=== PATIENT | female | born 1975 | race Caucasian/White ===

== ENCOUNTER 2019-11-22 13:20 | Day surgery (SDC) | payer SELFPAY ==
[2019-11-22] MEDS ORDERED: hydrALAZINE 20 MG/ML VIAL SLOW IVP PRN (13:26)
[2019-11-22 14:25] VITALS: BP 118/74; TEMP 98.3; BMI 30.7
--- NOTE | 2019-11-22 15:53 | PDOC.LDHP ---
Labor and Delivery H&P Chief complaint: contractions HPI: 44 y/o at 37w4d, patient of Dr. Bernal, presents with ctx every 7 mins for the last few hours. Is scheduled for primary LTCS for breech later this month. Denies VB, LOF, or decreased FM. ROS neg for HEENT, CV, pulm, GI, , neuro, psych, skin, musculoskeletal, or constitutional symptoms other than mentioned above. OB History Details: 1 prior term Past Medical History: None Current medications: pre-blair vitamins Previous surgical history: appendectomy, other (brain, ortho surgeries) Allergies/Adverse Reactions: Allergies Allergy/AdvReac Type Severity Reaction Status Date / Time latex Allergy Rash Verified 11/22/19 14:16 Social history: none - Physical Exam Vital signs reviewed and normal: yes General: NAD, resting Lungs: nonlabored breathing Abdomen: gravid Extremeties: no edema FHT: category 1 (150s, mod variability, + accels, no decels) [place] contractions every: intermittent - Vaginal Exam cm dilated: 2 (Unchanged after 1 hour) Effacement: 50% Station: -3 - Assessment 44 y/o at 37w4d with no e/o active labor. status reassuring with reactive NST. - Plan -: D/c home with precautions. Advised to keep all appointments.
== END 2019-11-22 15:40 | disposition home or self-care (01) ==
LOC: L&D/OP 13:20
PROVIDERS: ATTEND Obstetrics & Gynecology
DX: O47.1 False labor at or after 37 completed weeks of gestation (principal); Z3A.37 37 weeks gestation of pregnancy; Z91.040 Latex allergy status
CPT/HCPCS: 99283

== ENCOUNTER 2019-11-26 11:34 | Inpatient (IN) | payer OTHER, SELFPAY ==
[2019-11-26] MEDS ORDERED: hydrALAZINE 20 MG/ML VIAL SLOW IVP PRN ×2 (11:54→15:20)
[2019-11-26] MEDS ORDERED: Promethazine HCl 25 MG/ML VIAL IM PRN ×2 (11:54→13:03)
[2019-11-26] MEDS ORDERED: Ondansetron PF 4 MG/2 ML Vial IVP PRN ×3 (11:54→15:20)
[2019-11-26] MEDS ORDERED: Bicitra 30 ML UDCUP PO SCH (12:00)
[2019-11-26] MEDS ORDERED: CEFAZOLIN 2 GM in Premix Bag 1 BAG IVPB SCH (12:00)
[2019-11-26] MEDS ORDERED: Lactated Ringer's 1,000 ML IV SCH (12:00)
[2019-11-26] MEDS ORDERED: Oxytocin 10 UNITS/ML VIAL ONE (12:08)
[2019-11-26] MEDS ORDERED: Ketorolac Tromethamine 30 MG/ML VIAL ONE (12:08)
[2019-11-26] MEDS ORDERED: PHENYLEPHRINE-NS 100 MCG/ML 10 ML SYRINGE ONE (12:08)
[2019-11-26] MEDS ORDERED: EPHEDRINE 25 MG/5 ML SYRINGE ONE (12:08)
[2019-11-26] MEDS ORDERED: Glycopyrrolate 0.2 MG/ML 5 ML SYRINGE ONE (12:08)
[2019-11-26] MEDS ORDERED: Ondansetron PF 4 MG/2 ML Vial ONE (12:08)
[2019-11-26 12:10] VITALS: BMI 31.8
[2019-11-26] MEDS ORDERED: MORPHINE 5 MG/10 ML PF VIAL ONE (12:10)
[2019-11-26 12:22] LABS: Hemoglobin 13.9 g/dL (12.0-16.0); Mean Corpuscular HGB CONC 35.3 g/dL (32.0-36.0); Mean Corpuscular Hemoglobin 34.2 pg (27.0-31.0); Mean Corpuscular Volume 96.8 fL (78.0-98.0); Mean Platelet Volume 7.7 fL (7.4-10.4); Platelet Count 226 thou/uL (130-400); RBC Distribution Width 11.9 % (11.5-14.5); Red Blood Cell (RBC) Count 4.07 mill/uL (4.20-5.40)
[2019-11-26] MEDS ORDERED: Famotidine/PF 20 mg/2ml Vial ONE (12:23)
[2019-11-26] MEDS ORDERED: Scopolamine 1.5 mg/72 hour Patch ONE (12:24)
--- NOTE | 2019-11-26 12:48 | PDOC.LDHP ---
Labor and Delivery H&P Chief complaint: other (BPP 6/8) HPI: 44yo at 38w5d by LMP here for PCS for breech presentation and BPP 6/8, -2 for breathing today in office. +FM Current gestational age (weeks): 38 Due date: 12/09/19 Dating criteria: last menstrual period Grav: 2 Para: 1 Current complications: none Abnormal US findings: Yes (BPP 6/8, breech) Past Medical History: denies Current medications: pre-blair vitamins Previous surgical history: other (wrist surgery, neurosurgery- fluid drained, appy) Allergies/Adverse Reactions: Allergies Allergy/AdvReac Type Severity Reaction Status Date / Time latex Allergy Rash Verified 11/22/19 14:16 Social history: none - Physical Exam Vital signs reviewed and normal: yes General: NAD Heart: RRR Lungs: CTAB Abdomen: gravid Extremeties: no edema FHT: category 1 [place] contractions every: 5min - OB Labs Blood type: O RH: negative Antibody Screen: positive HIV: negative RPR: negative HEPSAg: negative 1 hour GCT: negative GBS: negative Urine drug screen: negative Rubella: immune - Assessment L&D Assessment: scheduled primary section - Plan Plan: admit to L&D, to OR for section, informed consent obtained, anesthesia consult for pain management
--- NOTE | 2019-11-26 12:52 | PDOC.OPDEL ---
OB Operative/Delivery Note Delivery Dr/Surgeon: Archie Assist: Light Pre-Delivery Diagnosis: breech Procedure/Post Delivery Dx: primary low transverse CS Weeks gestation: 38 Anesthesia: spinal - Additional Findings/Plan Placenta delivered: spontaneous findings: low transverse hysterotomy without extension, normal uterus, normal tubes, normal ovaries Post delivery plan: routine recovery
[2019-11-26 13:02] LABS: HBSAg Index 0.19 S/CO (0-0.99); Hep B Surf Ag Non-Reactive S/CO (NonReactive); Syphilis Antibody Nonreactive (Nonreactive); Syphilis Antibody Index 0.03 S/CO (<1.00 Non-Reactive)
[2019-11-26] MEDS ORDERED: L&D-Morphine 4 MG/ML VIAL SLOW IVP PRN (13:03)
[2019-11-26] MEDS ORDERED: Promethazine HCl 25 MG SUPP PR PRN (13:03)
[2019-11-26] MEDS ORDERED: Meperidine HCl/PF 25 MG/ML VIAL SLOW IVP PRN (13:03)
[2019-11-26] MEDS ORDERED: HYDROmorphone 2 MG/ML VIAL SLOW IVP PRN (13:03)
[2019-11-26] MEDS ORDERED: Ketorolac Tromethamine 30 MG/ML VIAL IVP PRN (13:03)
[2019-11-26] MEDS ORDERED: Naloxone HCl 0.4 mg/ml Vial IVP PRN ×2 (13:03)
[2019-11-26] MEDS ORDERED: Naloxone HCl 0.4 mg/ml Vial IV PRN (13:03)
[2019-11-26] MEDS ORDERED: diphenhydrAMINE 50 MG/ML VIAL IVP PRN (13:03)
[2019-11-26] MEDS ORDERED: Ondansetron HCl/PF 4 MG/2 ML Vial IVP PRN (13:03)
[2019-11-26] MEDS ORDERED: Ketorolac Tromethamine 30 MG/ML VIAL IVP SCH (13:15)
[2019-11-26] MEDS ORDERED: Communication Order-Pharmacy FS SCH (13:15)
[2019-11-26] MEDS ORDERED: Fentanyl 100 MCG/2 ML VIAL ONE (13:16)
[2019-11-26] MEDS ORDERED: Midazolam HCl 2 mg/2 ml Vial ONE (13:17)
[2019-11-26 13:30] LABS: Actual Bicarbonate (HCO3a) 21.8 mEq/L (22-28); Actual Bicarbonate (HCO3v) 21 mEq/L (22-28); Base Excess -4.3 mEq/L (-2.0 to +3.0); Base Excess (BEa) -3.6 mEq/L (-2.0 to +3.0); pH (Cord, venous) 7.36 (7.32-7.43)
[2019-11-26] MEDS ORDERED: NS / Oxytocin 40 units/1000ml 1,000 ML ONE (15:12)
[2019-11-26] MEDS ORDERED: Acetaminophen 325 MG TAB PO PRN (15:20)
[2019-11-26] MEDS ORDERED: Lanolin Ointment 7 GM TUBE TOP PRN (15:20)
[2019-11-26] MEDS ORDERED: Simethicone Chewable 80 MG TAB PO PRN (15:20)
[2019-11-26] MEDS ORDERED: Bisacodyl 10 MG SUPP PR PRN (15:20)
[2019-11-26] MEDS: Ferrous Sulfate 325 MG TAB PO SCH (19:34)
[2019-11-26] MEDS: Docusate Calcium (SURFAK) 240 MG CAP PO SCH (21:45)
[2019-11-26] MEDS: diphenhydrAMINE 25 MG CAP PO PRN (22:28)
[2019-11-27] MEDS ORDERED: HYDROcodone/Acetaminophen 5/325 mg Tablet PO PRN (02:01)
[2019-11-27] MEDS ORDERED: Sodium Chloride 0.9% 10 ML ONE ×2 (04:55→05:06)
[2019-11-27] MEDS: diphenhydrAMINE 25 MG CAP PO PRN ×2 (04:56→09:13)
--- NOTE | 2019-11-27 05:49 | PDOC.PP ---
Post Progress Note Post Day #: POD1 Subjective: Feels well, pain under control PO intake tolerated: yes Flatus: yes Ambulation: yes Vital Signs (12 hours) Temp Pulse Resp BP Pulse Ox 11/27/19 00:40 98.4 F 106 H 18 128/70 11/26/19 19:49 98.1 F 82 18 117/70 98 Weight Weight 163 lb Past vitals reviewed and wml - Physical Examination General: NAD Respiratory: non-labored breathing Abdominal: lochia, no distention, appropriately TTP Extremities: negative homans (B) Skin: CS incision dry & intact (sutured and DB in use), no rash Neurological: no gross focal deficits Psychiatric: A&Ox3, normal affect Result Diagrams: 11/26/19 12:08 Additional Labs: Post Labs Blood Type O NEGATIVE 11/26/19 14:04 Hep Bs Antigen Non-Reactive S/CO (NonReactive) 11/26/19 12:08 (1) Delivery by section Code(s): [id number] - Status: Acute - Assessment/Plan POD1 Doing well. Encouraged ambulation. Routine postop care.
[2019-11-27] MEDS: Ferrous Sulfate 325 MG TAB PO SCH ×2 (07:51→21:02)
[2019-11-27 08:11] LABS: Hemoglobin 11.3 g/dL (12.0-16.0); Mean Corpuscular HGB CONC 35.3 g/dL (32.0-36.0); Mean Corpuscular Hemoglobin 34.2 pg (27.0-31.0); Mean Corpuscular Volume 96.9 fL (78.0-98.0); Mean Platelet Volume 7.7 fL (7.4-10.4); Platelet Count 205 thou/uL (130-400); RBC Distribution Width 11.9 % (11.5-14.5); White Blood Cell (WBC) Count 15.3 thou/uL (4.8-10.8)
[2019-11-27] MEDS ORDERED: Adacel (T-DAP) 0.5 ML SYRINGE IM ONE (09:00)
[2019-11-27] MEDS: Prenatal Vitamin 1 TAB PO SCH (09:09)
[2019-11-27] MEDS: Docusate Calcium (SURFAK) 240 MG CAP PO SCH ×2 (09:10→21:18)
[2019-11-27] MEDS: Ibuprofen 800 MG TAB PO SCH ×2 (13:31→21:18)
[2019-11-27] MEDS: HYDROcodone/Acetaminophen 5/325 mg Tablet PO PRN ×2 (15:20→21:17)
--- NOTE | 2019-11-27 20:19 | OP ---
DATE OF PROCEDURE: 11/26/2019 PREOPERATIVE DIAGNOSES: 1. Intrauterine at 38 weeks 5 days. 2. Breech presentation. POSTOPERATIVE DIAGNOSES: 1. Intrauterine at 38 weeks 5 days. 2. Breech presentation. PROCEDURE PERFORMED: Primary low transverse section via Pfannenstiel skin incision. ANESTHESIA: Spinal. PEDIATRICS HOSPITALIST SURGEON: Marilu Muñoz CNM. ESTIMATED BLOOD LOSS: 600 mL. COMPLICATIONS: None. DRAINS: Lucas catheter. PATHOLOGY: None. FINDINGS: Male , footling breech presentation, clear amniotic fluid. Apgars and weight are currently pending. Hysterotomy without extension. Normal uterus, ovaries, and tubes bilaterally. Cord gas was ABG 7.346. DESCRIPTION OF PROCEDURE: Patient was taken to the operating room, where spinal anesthesia was obtained without difficulty. Patient was prepped and draped in a sterile fashion in a dorsal supine position with a leftward tilt. After ensuring adequacy of anesthesia, Pfannenstiel skin incision were made and carried down to the underlying subcutaneous tissue with the knife. The fascia was nicked in the midline with a knife and carried laterally with the Andrew scissors. The superior aspect of the fascia was tented with 2 Chato's and dissected off the rectus bluntly. The inferior aspect of the fascia was tented with 2 Chato's and dissected off the rectus with the Andrew scissors. The rectus was bluntly divided in the midline. The peritoneum was bluntly entered into and manually retracted. The Jose Maria O retractor was placed. The lower uterine segment was incised in a transverse fashion and extended with a Montgomery maneuver. The breech was brought to the hysterotomy. The feet delivered initially followed by the sacrum. The sacrum was turned sacrum anterior and the baby was delivered up to the level of the scapula. The baby was grasped with a moist towel and the arms were delivered with a sweeping motion over the anterior chest. The head was then flexed with the [id number]-[id number] maneuver and the head was delivered up until the parietal bones. At this time with the head being slightly larger, there was slight difficulty met in delivering the very superior most aspect of the calvarium, but the baby was delivered with pressure on the lower abdomen around where the head was and the 's cord was clamped and the infant was handed to awaiting Lauri team. Cord gas and cord blood were obtained. The placenta was allowed to spontaneously deliver. The uterus was exteriorized, cleared of all clots and debris and placed back into the abdomen. The hysterotomy was repaired with a #1 Monocryl in a running locking fashion. Hemostasis was noted to be excellent. The pelvis was irrigated and suctioned and hemostasis was again noted. Jose Maria O retractor was removed. The rectus muscles were examined and noted to be hemostatic. The fascia was reapproximated with 0 PDS x1 suture with excellent reapproximation. The subcutaneous tissue was irrigated and cauterized of any bleeders and reapproximated with a 2-0 plain gut in a running fashion. The skin was closed with 4-0 Monocryl in a subcuticular fashion. Dermabond was applied as well as a pressure dressing. Patient tolerated the procedure well. Sponge, lap, and needle counts correct x2. Patient was taken to recovery room in stable condition. Patient received Ancef 2 g prior to the procedure. Job ID: [id number]
[2019-11-28] MEDS: HYDROcodone/Acetaminophen 5/325 mg Tablet PO PRN (01:34)
[2019-11-28] MEDS: Ibuprofen 800 MG TAB PO SCH (05:46)
[2019-11-28] MEDS: Prenatal Vitamin 1 TAB PO SCH (08:49)
[2019-11-28] MEDS: Docusate Calcium (SURFAK) 240 MG CAP PO SCH (08:50)
[2019-11-28] MEDS: Ferrous Sulfate 325 MG TAB PO SCH (09:43)
[2019-11-28 09:49] VITALS: BP 124/62; TEMP 98.1
== END 2019-11-28 11:15 | disposition home or self-care (01) | DRG 788 ==
LOC: L&D 11:34 → 3SE 16:35 → 3SW 11-27 18:16
PROVIDERS: ADMIT Obstetrics & Gynecology; ATTEND Obstetrics & Gynecology
PROC: 10D00Z1 Extraction of Products of Conception, Low, Open Approach (ICD-10-PCS; principal; 2019-11-26)
PROC: 3E0334Z Introduction of Serum, Toxoid and Vaccine into Peripheral Vein, Percutaneous Approach (ICD-10-PCS; 2019-11-27)
DX: O32.1XX0 Maternal care for breech presentation, not applicable or unspecified (principal); Z3A.38 38 weeks gestation of pregnancy; Z37.0 Single live birth; Z91.040 Latex allergy status
CPT/HCPCS: 36415; 51702; 82805; 85027; 85461; 86780; 86850; 86870; 86900; 86901; 87340; 90384; 96372; J0690; J1885; J2250; J2274; J2405; J2590; J3010; Q0163; S0028